=== PATIENT | male | born 1950 | race Caucasian/White ===

== ENCOUNTER 2021-12-26 12:04 | Observation (INO) | payer OTHER, MEDICARE ==
[2021-12-26 12:30] VITALS: BMI 21.7
[2021-12-26 13:54] LABS: BASO % 0.5 % (0-2.0); HEMATOCRIT 37.3 % (35.4-49); HEMOGLOBIN 12.2 GM/dL (11.7-16.9); MCH 30.3 pg (25.7-33.7); MCHC 32.9 g/dl (32.0-35.9); MEAN CELL VOLUME 92.2 fl (80-96); MEAN PLT VOLUME 8.9 fl (7.5-11.1); MONO % 6.6 % (3.8-10.2); NEUT % 74.9 % (42.8-82.8); PLATELET COUNT 193 10^3/uL (134-434); RBC 4.04 M/mm3 (4.00-5.60); RDW 14.6 % (11.9-15.9); WHITE BLOOD COUNT 4.9 K/mm3 (4.0-10.0)
[2021-12-26 14:14] LABS: ALBUMIN 4.7 g/dl (3.4-5.0); BLOOD UREA NITROGEN 16.8 mg/dL (7-18); CALCIUM 10.1 mg/dL (8.5-10.1)
[2021-12-26 14:17] LABS: CREATININE 1.3 mg/dL (0.55-1.3)
[2021-12-26 14:20] LABS: BILIRUBIN,TOTAL 1.4 mg/dL (0.2-1); TOT PROT 7.7 g/dl (6.4-8.2)
[2021-12-26 14:42] LABS: URINE APPEARANCE TURBID; URINE BILIRUBIN NEGATIVE (NEGATIVE); URINE COLOR YELLOW; URINE GLUCOSE (UA) 3+ (NEGATIVE); URINE KETONE NEGATIVE (NEGATIVE); URINE LEUK ESTERASE NEGATIVE (NEGATIVE); URINE NITRITE NEGATIVE (NEGATIVE); URINE PROTEIN NEGATIVE (NEGATIVE); URINE UROBILINOGEN 0.2 mg/dL (0.2-1.0)
[2021-12-26] MEDS: APIXABAN 5 MG TABLET PO SCH (23:41)
[2021-12-26] MEDS: ATORVASTATIN CA 40 MG TABLET (FP) PO SCH (23:41)
[2021-12-27 07:23] LABS: BASO % 0.4 % (0-2.0); EOS % 2.3 % (0-4.5); HEMATOCRIT 35.6 % (35.4-49); HEMOGLOBIN 11.8 GM/dL (11.7-16.9); LYMPH % 25.4 % (8-40); MCH 30.2 pg (25.7-33.7); MCHC 33.2 g/dl (32.0-35.9); MEAN CELL VOLUME 91.2 fl (80-96); MEAN PLT VOLUME 8.9 fl (7.5-11.1); MONO % 9.8 % (3.8-10.2); NEUT % 62.1 % (42.8-82.8); PLATELET COUNT 190 10^3/uL (134-434); RDW 14.5 % (11.9-15.9); WHITE BLOOD COUNT 5.4 K/mm3 (4.0-10.0)
[2021-12-27 07:48] LABS: CALCIUM 9.3 mg/dL (8.5-10.1)
[2021-12-27 07:49] LABS: MAGNESIUM 1.8 mg/dL (1.8-2.4)
[2021-12-27 07:50] LABS: ALBUMIN 3.9 g/dl (3.4-5.0); BLOOD UREA NITROGEN 20.1 mg/dL (7-18); CREATININE 1.1 mg/dL (0.55-1.3)
[2021-12-27 07:52] LABS: TOT PROT 6.6 g/dl (6.4-8.2)
[2021-12-27] MEDS: INSULIN SLIDING SCALE (NOVOLOG) 1 VIAL SQ SCH ×3 (07:54→17:47)
[2021-12-27 07:55] LABS: BILIRUBIN,TOTAL 1.3 mg/dL (0.2-1)
[2021-12-27] MEDS: metFORMIN HCL 500 MG TABLET (FP) PO SCH (09:53)
[2021-12-27] MEDS: CYANOCOBALAMIN 1,000 MCG TABLET (FP) PO SCH (09:53)
[2021-12-27] MEDS: sitaGLIPtin PHOSPHATE 50 MG TABLET PO SCH (09:53)
[2021-12-27] MEDS: METOPROLOL TARTRATE 50 MG TABLET (FP) PO SCH (09:53)
[2021-12-27] MEDS: FOLIC ACID 1 MG TABLET (FP) PO SCH (09:53)
[2021-12-27] MEDS: APIXABAN 5 MG TABLET PO SCH ×2 (09:53→21:42)
[2021-12-27] MEDS ORDERED: LOSARTAN POTASSIUM 100 MG TABLET PO SCH (10:00)
[2021-12-27] MEDS ORDERED: PATIENT'S OWN MEDICATION (NON-FORMULARY) (Empagliflozin 25 MG Tablet) PO SCH (10:00)
[2021-12-27] MEDS: EMPAGLIFLOZIN 25 MG PO SCH (12:48)
[2021-12-27] MEDS: ATORVASTATIN CA 40 MG TABLET (FP) PO SCH (21:41)
[2021-12-28] MEDS: sitaGLIPtin PHOSPHATE 50 MG TABLET PO SCH ×3 (06:16→21:00)
[2021-12-28] MEDS: metFORMIN HCL 500 MG TABLET (FP) PO SCH ×3 (06:16→21:01)
[2021-12-28] MEDS: INSULIN SLIDING SCALE (NOVOLOG) 1 VIAL SQ SCH ×5 (06:16→21:01)
[2021-12-28] MEDS: APIXABAN 5 MG TABLET PO SCH ×2 (09:47→21:00)
[2021-12-28] MEDS: METOPROLOL TARTRATE 50 MG TABLET (FP) PO SCH (09:47)
[2021-12-28] MEDS: FOLIC ACID 1 MG TABLET (FP) PO SCH (09:47)
[2021-12-28] MEDS: CYANOCOBALAMIN 1,000 MCG TABLET (FP) PO SCH (09:48)
[2021-12-28] MEDS: LOSARTAN POTASSIUM 50 MG TABLET PO SCH (09:48)
[2021-12-28] MEDS: EMPAGLIFLOZIN 25 MG PO SCH (15:48)
[2021-12-28] MEDS: ATORVASTATIN CA 40 MG TABLET (FP) PO SCH (21:00)
[2021-12-29] MEDS: INSULIN SLIDING SCALE (NOVOLOG) 1 VIAL SQ SCH ×2 (06:10→12:00)
[2021-12-29] MEDS: CYANOCOBALAMIN 1,000 MCG TABLET (FP) PO SCH (09:57)
[2021-12-29] MEDS: sitaGLIPtin PHOSPHATE 50 MG TABLET PO SCH (09:57)
[2021-12-29] MEDS: metFORMIN HCL 500 MG TABLET (FP) PO SCH (09:57)
[2021-12-29] MEDS: LOSARTAN POTASSIUM 50 MG TABLET PO SCH (09:58)
[2021-12-29] MEDS: FOLIC ACID 1 MG TABLET (FP) PO SCH (09:58)
[2021-12-29] MEDS: APIXABAN 5 MG TABLET PO SCH (09:58)
[2021-12-29] MEDS: METOPROLOL TARTRATE 50 MG TABLET (FP) PO SCH (09:58)
[2021-12-29] MEDS ORDERED: ERYTHROMYCIN 0.5% OPHTHALMIC OINTMENT 3.5 GM TUBE OS SCH (10:00)
[2021-12-29 14:19] VITALS: BP 129/66; PULSE 55; RESP 18; TEMP 97.3
== END 2021-12-29 15:24 | disposition home or self-care (01) ==
LOC: JER 12:04 → JERBED 17:23 → J4W 12-27 07:12
PROVIDERS: ADMIT Internal Medicine; ATTEND Family Medicine
DX: R55 Syncope and collapse (principal); I10 Essential (primary) hypertension; I48.91 Unspecified atrial fibrillation; E11.9 Type 2 diabetes mellitus without complications; E78.5 Hyperlipidemia, unspecified; H40.9 Unspecified glaucoma; I69.398 Other sequelae of cerebral infarction; Z79.4 Long term (current) use of insulin; Z79.01 Long term (current) use of anticoagulants; Z11.52 Encounter for screening for COVID-19
CPT/HCPCS: 36415; 70450-TC; 71045-TC-FY; 72125-TC; 80053; 80061; 81003; 82962; 83735; 84439; 84443; 84484; 85025; 87086; 93005; 93010; 93880-TC; 97116-GP; 97161-GP; 99285-25; C9803-CS; G0378; U0003; U0005

== ENCOUNTER 2023-12-06 04:27 | Day surgery (SDC) | payer OTHER, MEDICARE ==
[2023-12-01 16:38] VITALS: BMI 22.5
[2023-12-06] MEDS: BUPIVACAINE HCL/PF 0.25% (2.5MG/ML) 10 ML VIAL IJ ONE
[2023-12-06] MEDS ORDERED: HEPARIN NA (PORCINE) 5,000 UNITS/ML 1ML VIAL ONE (07:07)
[2023-12-06] MEDS ORDERED: BUPIVACAINE HCL/PF 0.25% (2.5MG/ML) 10 ML VIAL ONE (07:07)
[2023-12-06] MEDS ORDERED: DEXMEDETOMIDINE HCL 200 MCG/2 ML IVPB ONE (07:51)
[2023-12-06] MEDS ORDERED: BUPIVACAINE HCL/PF 0.5% (5MG/ML) 10 ML VIAL ONE ×2 (07:58→08:22)
[2023-12-06] MEDS ORDERED: PHENYLEPHRINE HCL 10 MG/1 ML SINGLE DOSE VIAL ONE (07:58)
[2023-12-06] MEDS ORDERED: MIDAZOLAM HCL 2 MG/2 ML SINGLE DOSE VIAL ONE (08:08)
[2023-12-06] MEDS: ceFAZolin SODIUM 1 GM VIAL IVPB ONE ×2 (08:36)
[2023-12-06] MEDS: BUPIVACAINE HCL/PF 0.5% (5 MG/ML) 30 ML VIAL IJ ONE ×2 (09:17)
[2023-12-06] MEDS: LACTATED RINGERS SOLUTION 1,000 ML IV SCH (10:00)
[2023-12-06] MEDS ORDERED: ONDANSETRON 4 MG/2 ML VIAL IVPUSH PRN (11:08)
[2023-12-06] MEDS ORDERED: oxyCODONE HCL 5 MG TABLET PO PRN (11:08)
[2023-12-06 14:10] VITALS: RESP 20; TEMP 97.3
[2023-12-06 14:45] VITALS: BP 135/72; PULSE 60
== END 2023-12-06 15:30 | disposition home or self-care (01) ==
LOC: JASU-SURG 04:27
PROVIDERS: ATTEND Surgery
PROC: 0YJ64ZZ Inspection of Left Inguinal Region, Percutaneous Endoscopic Approach (ICD-10-PCS; 2023-12-06)
PROC: 0YU60JZ Supplement Left Inguinal Region with Synthetic Substitute, Open Approach (ICD-10-PCS; principal; 2023-12-06 08:00)
DX: K40.90 Unilateral inguinal hernia, without obstruction or gangrene, not specified as recurrent (principal)
CPT/HCPCS: 82962; 86850; 86900; 86901; 94760; J1644